=== PATIENT | male | born 1935 | race Caucasian/White ===

== ENCOUNTER → 2016-09-18 | Day surgery (SDC) | payer OTHER, BC ==
[2016-09-03 10:25] VITALS: BMI 33.0
[~2016-09-18] VITALS: Ht 177.8 cm; Wt 104.5 kg
[~2016-09-18] MED LIST: ASPCH81X PO; FLUT0.15 NAE; GLUC10007 PO; LIDOCAINE HCL 2% 2 ML VIAL (20MG/ML) ONE; MULT-506 PO; OYST500T47 PO; PROPOFOL IV EMULSION 10 MG/ML 20 ML VIAL IV ONE; SODIUM CHLORIDE 0.9% 500ML 500 ML IV ONE; TRAM-10 PO
[2016-09-18 09:56] VITALS: Ht 177.8 cm; Wt 104.5 kg
[2016-09-18 10:01] VITALS: TEMP 36.3
--- NOTE | 2016-09-18 10:18 | Endo History and Physical ---
History & Physical Date of Service: Sep 18, 2016. Chief Complaint: constipation Referring Physician: Dr. Mendez History of Present Illness constipation Past Surgical History Hx Cardiac Surgery: Yes (HEART CATH, AVR) Hx Internal Defibrillator: No Hx Pacemaker: No Hx Abdominal Surgery: No Hx Post-Op Nausea and Vomiting: No Hx Cancer Surgery: No Hx Thoracic Surgery: No Hx Orthopedic: Yes (LEFT HAND TENDON REPAIR) Hx Urinary Tract Surgery: Yes (NEPHROSTOMY TUBES RT/LEFT SIDE) Family History None Social History Smoking Status: Never Smoker Hx Substance Use: Yes (SEE MED REC) Hx Alcohol Use: Yes (RARELY) Allergies Coded Allergies: Azithromycin (Verified Allergy, Unknown, DIARRHEA AND RENAL COMPLICATIONS , 09/03/16) Doxycycline (Verified Allergy, Unknown, DIARRHEA, 09/03/16) Finasteride (Verified Allergy, Unknown, MUSCLE PAIN, 09/03/16) Iodinated Diagnostic Agents (Verified Allergy, Unknown, SOB, 09/03/16) Current Medications Reported Home Medications Medications Dose Route/Sig Max Daily Dose Days Date Category Multivitamin (Multivitamins) Tab 1 Tab PO QAM 08/26/16 Reported Aspirin Chewable (Aspirin) 81 Mg Chew 81 Mg PO Q2D 08/26/16 Reported Glucosamine (Glucosamine Sulfate) 1,000 Mg Tab 1,000 Mg PO QAM 08/26/16 Reported Calcium (Oyster Shell) 500 Mg Tab 1 Tab PO BID 08/26/16 Reported Ultram (Tramadol HCl) 50 Mg Tab 1 Tab PO Q4H PRN 30 08/26/16 Reported Flonase Allergy Relief (Fluticasone Propionate (Nasal)) 50 Mcg/Act Spr 1 [place] QAM PRN 08/26/16 Reported Vital Signs Weight (Kilograms): 104.55 Height (Feet): 5 Height (Inches): 10 Date Time Temp Pulse Resp B/P Pulse Ox O2 Delivery O2 Flow Rate FiO2 09/18/16 10:01 36.3 66 20 142/85 93 Room Air Physical Exam General Appearance: WD/WN, no apparent distress Assessment and Plan colonoscopy today
--- NOTE | 2016-09-18 11:04 | GI REPORT ---
Procedure Date: 09/18/2016 10:31 AM Procedure: Colonoscopy Indications: Screening for colorectal malignant neoplasm, Incidental constipation noted Medicines: See the Anesthesia note for documentation of the administered medications Complications: No immediate complications. Estimated blood loss: None. Estimated Blood Loss: Estimated blood loss: none. Procedure: Pre-Anesthesia Assessment: - Prior to the procedure, a History and Physical was performed, and patient medications, allergies and sensitivities were reviewed. The patient's tolerance of previous anesthesia was reviewed. - The risks and benefits of the procedure and the sedation options and risks were discussed with the patient. All questions were answered and informed consent was obtained. - Patient identification and proposed procedure were verified prior to the procedure by the physician and the nurse. The procedure was verified in the pre-procedure area in the procedure room. - Mental Status Examination: alert and oriented. Airway Examination: normal oropharyngeal airway and neck mobility. Respiratory Examination: clear to auscultation. CV Examination: normal. Abdominal Examination: bowel sounds present, abdomen soft and non-tender, no masses or organomegaly noted. - ASA Grade Assessment: III - A patient with severe systemic disease. After I obtained informed consent, the scope was passed under direct vision. Throughout the procedure, the patient's blood pressure, pulse, and oxygen saturations were monitored continuously. The Scope was introduced through the anus and advanced to the cecum, identified by appendiceal orifice and ileocecal valve. The colonoscopy was performed without difficulty. The patient tolerated the procedure well. The quality of the bowel preparation was good. Findings: The perianal and digital rectal examinations were normal. Pertinent negatives include normal sphincter tone and no palpable rectal lesions. An area of melanosis was found in the entire colon. The exam was otherwise without abnormality. The retroflexed view of the distal rectum and anal verge was normal and showed no anal or rectal abnormalities. Impression: - Melanosis in the colon. - The examination was otherwise normal. - The distal rectum and anal verge are normal on retroflexion view. - No specimens collected. Recommendation: - Miralax 1 capful (17 grams) in 8 ounces of water PO daily. - Colace capsule(s) orally 100 mg daily. - Return to primary care physician as previously scheduled. - Discharge patient to home. Winnie Lozoya D.O. Winnie Lozoya DO 09/18/2016 11:03:58 AM This report has been signed electronically. Note Initiated On: 09/18/2016 10:31 AM I attest to the content of the Intraoperative Record and orders documented therein, exceptions below
[2016-09-18 11:32] VITALS: BP 108/65; PULSE 68; O2SAT 95
--- NOTE | 2016-09-18 11:32 | Anesthesiology Progress Note ---
Anesthesia Post Op Note Date & Time Sep 18, 2016 at 11:32 Vital Signs Pain Intensity: 0 Vital Signs Past 12 Hours Date Time Temp Pulse Resp B/P Pulse Ox O2 Delivery O2 Flow Rate FiO2 09/18/16 11:15 61 18 106/69 96 Room Air 09/18/16 11:03 69 18 95/61 98 Room Air 09/18/16 10:01 36.3 66 20 142/85 93 Room Air Notes Mental Status: alert / awake / arousable, participated in evaluation Pt Amnestic to Procedure: Yes Nausea / Vomiting: adequately controlled Pain: adequately controlled Airway Patency, RR, SpO2: stable & adequate BP & HR: stable & adequate Hydration State: stable & adequate Anesthetic Complications: no major complications apparent
--- NOTE | 2016-09-18 11:32 | Discharge Instructions ---
Endoscopy Patient Instructions Date / Procedure(s) Performed Sep 18, 2016. Colonoscopy Allergy Information Coded Allergies: Azithromycin (Verified Allergy, Unknown, DIARRHEA AND RENAL COMPLICATIONS , 09/03/16) Doxycycline (Verified Allergy, Unknown, DIARRHEA, 09/03/16) Finasteride (Verified Allergy, Unknown, MUSCLE PAIN, 09/03/16) Iodinated Diagnostic Agents (Verified Allergy, Unknown, SOB, 09/03/16) Discharge Date / Findings Sep 18, 2016. normal colon; melanosis Medication Instructions Restart Stopped Medication(s): OK to resume home medications as above Provider Instructions Activity Restrictions - No exercising or heavy lifting for 24 hours. - Do not drink alcohol the day of the procedure. - Do not drive a car or operate machinery until the day after the procedure. - Do not make any important decisions or sign important papers in 24 hours after the procedure. Following Day: - Return to full activity which may include returning to work/school. Diet Start your diet with liquids and light foods (jello, soup, juice, toast). Then eat your usual diet if not nauseated. Treatment For Common After Affects For mild abdominal pain, bloating, or excessive gas: - Rest - Eat lightly - Lie on right side Follow-Up Information Follow-up with Dr. Mendez as scheduled Anesthesia Information What You Should Know You have had a procedure that required some medicine to reduce anxiety and discomfort. This treatment is called moderate sedation. After receiving the treatment, you may be sleepy, but you will be able to breathe on your own. The effects of the treatment may last for several hours. Follow these instructions along with Activity/Diet recommendations noted above: * Do NOT do anything where dizziness or clumsiness would be dangerous. * Rest quietly at home today, then you can be up and about tomorrow. * Have a responsible person stay with you the rest of today. * You may have had an I.V. today. If so, you may take the dressing off later today. Recommendations Call your doctor if: * Trouble breathing * Continuous vomiting for more than 24 hours * Temperature above 101 degrees * Severe abdominal pain or bloating * Pain not relieved by pain medicine ordered * There is increased drainage or redness from any incision * A large amount of rectal bleeding greater than 2-3 tablespoons. (If you had a polyp/s removed or have hemorrhoids, a small amount of blood - from the rectum is to be expected.) * You have any unanswered questions or concerns. IN THE EVENT OF A SERIOUS EMERGENCY, GO TO THE NEAREST EMERGENCY ROOM Your discharge instructions were prepared by provider Winnie Lozoya. Patient Instructions Signature Page Nader Caballero Patient (or Guardian) Signature/Date: I have read and understand the instructions given to me by my caregivers. Caregiver/RN/Doctor Signature/Date: The above-named patient and/or guardian has received patient instructions on this date. + Original Patient Signature Page (only) stays with chart. Please make copy for patient.
== END | disposition home or self-care (01) ==
LOC: C.GI 09:13
PROVIDERS: ATTEND Internal Medicine
DX: Z12.11 Encounter for screening for malignant neoplasm of colon (principal); K63.89 Other specified diseases of intestine; Z98.890 Other specified postprocedural states; Z91.041 Radiographic dye allergy status; Z79.82 Long term (current) use of aspirin; Z88.1 Allergy status to other antibiotic agents; Z88.8 Allergy status to other drugs, medicaments and biological substances